=== PATIENT | male | born 1980 | race Caucasian/White ===

== ENCOUNTER 2017-06-20 01:45 | Emergency (ER) | payer SELFPAY ==
--- NOTE | 2017-06-20 01:49 | EDM.PDOC ---
ED HPI GENERAL MEDICAL PROBLEM - General Chief Complaint: ENT Problem Stated Complaint: dental pain Time Seen by Provider: 06/20/17 01:48 Source of Information: Reports: Patient, RN, RN Notes Reviewed History Limitations: Reports: No Limitations - History of Present Illness INITIAL COMMENTS - FREE TEXT/NARRATIVE: Patient presents to the ED at [facility] complaining of dental pain that started about 2 days ago. Patient does not see a dentist on a regular basis. Patient complains of left upper jaw pain. Onset: Gradual Onset Date: 06/18/17 Duration: Constant Left Face Pain Score (Numeric/FACES): 6 - Related Data Allergies Allergy/AdvReac Type Severity Reaction Status Date / Time tramadol AdvReac Nausea Verified 06/20/17 01:48 Home Meds: Home Meds Clindamycin HCl 1 tab PO TID 10 Days #30 capsule 06/20/17 [Rx] ED ROS ENT - Review of Systems Review Of Systems: See Below Constitutional: Denies: Fever, Chills, Weakness HEENT: Reports: Dental Pain Respiratory: Denies: Shortness of Breath, Cough Cardiovascular: Denies: Chest Pain, Palpitations Skin: Reports: No Symptoms Neurological: Reports: No Symptoms. Denies: Dizziness, Headache ED EXAM, ENT - Physical Exam Exam: See Below Exam Limited By: No Limitations General Appearance: Alert, No Apparent Distress Mouth/Throat: Dental Abcess, Dental Pain, Dental Tenderness, Dry Mucous Membrane Neck: Supple. No: Lymphadenopathy (L), Lymphadenopathy (R) Respiratory/Chest: No Respiratory Distress, Lungs Clear, Normal Breath Sounds Cardiovascular: Regular Rate, Rhythm Neurological: Alert, Oriented Skin: Warm, Dry, Intact, Normal Color, No Rash Course - Vital Signs Last Recorded V/S: Last Vital Signs Temp 35.8 C 06/20/17 01:48 Pulse 74 06/20/17 01:48 Resp 16 06/20/17 01:48 BP 138/72 06/20/17 01:48 Pulse Ox 99 06/20/17 01:48 Departure - Departure Time of Disposition: 01:58 Disposition: Home, Self-Care 01 Condition: Good Clinical Impression: Dental abscess, Dental caries extending into dentin - Discharge Information Prescriptions: Clindamycin HCl 1 tab PO TID 10 Days #30 capsule Instructions: Dental Abscess, Dental Caries Forms: ED Department Discharge Additional Instructions: 1. Stay well hydrated and rest 2. Take medications for the full coarse, even if you are feeling better 3. May alternate Tylenol/Advil as needed 4. Take pain medication with foods 5. Need to get teeth pulled SERENA; this will not get better on its own 6. Do warm salt water rinses - Problem List Review Problem List Initiated/Reviewed/Updated: Yes
[2017-06-20 01:51] VITALS: BP 138/72
[2017-06-20] MEDS ORDERED: Take Home: Acetaminophen/HYDROcodone 325-5 MG, 5 Tab Pack PO ONE (02:03)
[2017-06-20] MEDS ORDERED: Clindamycin Phosphate 900 MG/6 ML SDV IM ONE (02:04)
== END 2017-06-20 02:35 | disposition home or self-care (01) ==
LOC: VM.ED 01:45
DX: K04.7 Periapical abscess without sinus (principal); K02.9 Dental caries, unspecified; Z88.5 Allergy status to narcotic agent
CPT/HCPCS: 96372; 99282; A9270; S0077